=== PATIENT | male | born 1965 | race Caucasian/White ===

== ENCOUNTER 2025-03-01 13:00 | Observation (INO) ==
[2025-03-01] MEDS: PRECEDEX INJ VIAL ONE (13:49)
[2025-03-01] MEDS: XYLOCAINE 2 % (PLAIN) ONE (13:49)
[2025-03-01] MEDS: VERSED ONE (13:49)
[2025-03-01] MEDS: BRIDION ONE (13:49)
[2025-03-01] MEDS: FENTANYL VIAL INJ 100 mcg ONE (13:49)
[2025-03-01] MEDS: DIPRIVAN VIAL 20 ML ONE (13:49)
[2025-03-01 13:54] VITALS: BMI 29.0
[2025-03-01] MEDS: ZEMURON 100 MG VIAL ONE (14:00)
[2025-03-01] MEDS: LR 1,000 ML IV 1,000 ML IV ONE (14:01)
[2025-03-01] MEDS: PEPCID 20 MG VIAL ONE (14:02)
[2025-03-01] MEDS: LR 1,000 ML IV 1,100 ML IV PRN (14:14)
[2025-03-01] MEDS: ZOFRAN INJ 4 MG VIAL IVP PRN (14:27)
[2025-03-01] MEDS: PEPCID 20 MG VIAL IVP PRN (14:29)
[2025-03-01] MEDS: REGLAN INJ 10 MG VIAL IVP PRN (14:30)
[2025-03-01] MEDS: ANCEF VIAL 1 GRAM ONE (14:50)
[2025-03-01] MEDS: NS 100 ML IV 100 ML ONE (14:50)
[2025-03-01] MEDS: ANCEF VIAL 1 GRAM IV PRN (15:07)
[2025-03-01] MEDS: MARCAINE 0.25% INJ ONE (15:07)
[2025-03-01] MEDS: VERSED IVP PRN (15:11)
[2025-03-01] MEDS: FENTANYL VIAL INJ 100 mcg IVP PRN (15:13)
[2025-03-01] MEDS: DIPRIVAN VIAL 120 ML IVP PRN (15:14)
[2025-03-01] MEDS ORDERED: XYLOCAINE 2 % (PLAIN) PRN (15:14)
[2025-03-01] MEDS: ZEMURON 100 MG VIAL IVP PRN (15:15)
[2025-03-01] MEDS: DECADRON INJ IVP PRN (15:20)
[2025-03-01] MEDS: EPHEDRINE SULFATE INJ ONE (15:23)
[2025-03-01] MEDS ORDERED: NS 1,000 ML IV 1,000 ML ONE (15:28)
[2025-03-01] MEDS: NEO-SYNEPHRINE INJ ONE (15:32)
[2025-03-01] MEDS: ROBINUL ONE (15:32)
[2025-03-01] MEDS: EPHEDRINE SULFATE INJ IVP PRN (15:35)
[2025-03-01] MEDS: KETAMINE HCL IV PRN (15:51)
[2025-03-01] MEDS ORDERED: BARHEMSYS INJ IVP PRN (15:56)
[2025-03-01] MEDS ORDERED: ZOFRAN INJ 4 MG VIAL IVP PRN ×2 (15:56→18:10)
[2025-03-01] MEDS ORDERED: BENADRYL INJ 50 MG VIAL IVP PRN (15:56)
[2025-03-01] MEDS ORDERED: KETAMINE HCL ONE (16:45)
[2025-03-01] MEDS ORDERED: ULTANE GAS IN ONE (16:45)
[2025-03-01] MEDS ORDERED: LUBIFRESH PM EYE OINTMENT PRN (17:23)
[2025-03-01] MEDS: TORADOL 30 MG VIAL ONE (17:38)
[2025-03-01] MEDS: TORADOL 30 MG VIAL IVP PRN (17:40)
[2025-03-01] MEDS: MORPHINE SULFATE INJ 10 MG ONE (17:41)
[2025-03-01] MEDS: NEO-SYNEPHRINE INJ IVP PRN (17:47)
[2025-03-01] MEDS: BRIDION IVP PRN (18:00)
[2025-03-01] MEDS: ROBINUL IVP PRN (18:00)
[2025-03-01] MEDS: MORPHINE SULFATE INJ 10 MG IVP PRN (18:08)
[2025-03-01] MEDS ORDERED: TYLENOL 325 MG TAB PO PRN (18:10)
[2025-03-01] MEDS: DILAUDID INJ IVP PRN ×2 (18:36→20:04)
[2025-03-01] MEDS: NS 1,000 ML IV 1,000 ML IV SCH (20:04)
[2025-03-01] MEDS: COLACE CAP 100 MG PO SCH (20:48)
[2025-03-02] MEDS: LOVENOX INJ 40 MG SYR SC SCH (08:22)
[2025-03-02 08:32] VITALS: RESP 18
[2025-03-02] MEDS: PERCOCET TAB 5/325 MG PO PRN ×2 (09:14→13:56)
[2025-03-02 09:34] LABS: MEAN PLATELET VOLUME 9.2 fL (7.4-11.0); RED CELL DISTRIBUTION WIDTH 14.9 % (11.6-16.5)
[2025-03-02 09:40] LABS: COR NA(FOR HYPERGLY) 143 mmol/L (136-145); CREATININE 0.67 mg/dL (0.70-1.30); eGFR NON BLACK RACES > 60 (>60)
[2025-03-02] MEDS: NEURONTIN CAP 400 MG PO SCH (10:21)
[2025-03-02 12:03] VITALS: BP 155/80; PULSE 97; TEMP 98.1; O2SAT 96
[2025-03-02] MEDS: DILAUDID INJ IVP PRN (12:40)
--- NOTE | 2025-03-02 13:13 | NOTE.SOAP ---
Soap Note Note for Day of Date of Exam: 03/02/25 Subjective Data Subjective Data: Patient was seen and examined at bedside. Patient states he is having pain to his heel at this time. He describes it as a sharp shooting pain at this time. Objective Data Objective Data: Surgical dressings were removed due to strikethrough. External fixator is noted to be intact to the right lower extremity and is currently in rectus position. Pin sites do not appear infected. All lower extremity compartments were noted to be soft at this time. CFT digits were noted to be instantaneous to the digits of the right foot.ROM noted to the digits of the right foot. Edema is appreciated to the right foot and ankle at this time. Mild erythema present to the right leg, No calf tenderness noted. Assessment Assessment: Charcot foot of the right foot, S/P medial and lateral column beam, STJ fusion and ex fix jade Plan Plan: - Patient is reporting significant pain to the right heel, did discuss having the patient stay an additional night to get pain under control - Patient takes Dilaudid po outpatient through pain management, will be sending him home with Percocet 5 - All pain scripts and Lovenox are in patients chart - Patient does have pets at home, and he did state he may have to leave tonight if he can't find someone to watch them - Patient can toe touch to transfer - Will follow up outpatient with Dr. Porter - Right leg was redressed and mago wraps were also applied to help with swelling Please contact with any questions
== END 2025-03-02 16:50 | disposition home or self-care (01) ==
LOC: MED/SURG 13:00 → SURG1 13:00
PROVIDERS: ADMIT Obstetrics & Gynecology Obstetrics; ATTEND Obstetrics & Gynecology Obstetrics
PROC: APEXFIX (2025-03-01 16:55)
PROC: MIDFOOT (2025-03-01 16:55)
DX: R26.89 Other abnormalities of gait and mobility; Y92.9 Unspecified place or not applicable; S93.311A Subluxation of tarsal joint of right foot, initial encounter; X58.XXXA Exposure to other specified factors, initial encounter; M12.571 Traumatic arthropathy, right ankle and foot; M67.01 Short Achilles tendon (acquired), right ankle; M14.671 Charcot's joint, right ankle and foot; Z72.0 Tobacco use; G89.18 Other acute postprocedural pain; M24.571 Contracture, right ankle